=== PATIENT | female | born 1935 | race Caucasian/White ===

== ENCOUNTER 2018-07-04 22:35 | Observation (INO) | payer OTHER ==
[~2018-07-04] VITALS: Ht 177.8 cm; Wt 114.9 kg
[2018-07-04 23:23] LABS: BASOPHILS # (AUTO) 0.03 x10^3/uL (0-0.1); BASOPHILS % (AUTO) 0 % (0-1); EOSINOPHILS # (AUTO) 0.06 x10^3/uL (0-0.4); EOSINOPHILS % (AUTO) 1 % (1-7); LYMPHOCYTES % (AUTO) 25 % (22-44); MD NO; MEAN CORPUSCULAR HEMOGLOBIN 29.9 pg (27.0-34.8); MEAN CORPUSCULAR HGB CONC 33.3 g/dL (32.4-35.8); MEAN CORPUSCULAR VOLUME 89.8 fL (80-100); MEAN PLATELET VOLUME 8.5 fL (7.4-10.4); MONOCYTES % (AUTO) 8 % (2-9); NEUTROPHILS % (AUTO) 66 % (42-75); PLATELET COUNT 212 x10^3/uL (130-400); RED BLOOD COUNT 4.47 x10^6/uL (3.82-5.3); RED CELL DISTRIBUTION WIDTH 14.9 % (9.6-15.2)
[2018-07-04 23:35] LABS: ALANINE AMINOTRANSFERASE 24 U/L (12-78); ALBUMIN 3.6 g/dL (3.4-5.0); ANION GAP 7 mmol/L (5-15); CALCIUM 9.9 mg/dL (8.5-10.1); CHLORIDE 108 mmol/L (98-107); CREATININE 0.88 mg/dL (0.55-1.02)
[2018-07-04 23:39] LABS: ALKALINE PHOSPHATASE 93 U/L (45-117); BILIRUBIN,TOTAL 0.2 mg/dL (0.2-1.0); TOTAL PROTEIN 7.5 g/dL (6.4-8.2); TROPONIN I < 0.015 ng/mL (0.000-0.045)
[2018-07-05] MEDS ORDERED: OMNIPAQUE 350 MG/ML, 100ML BOTTLE ONE (00:43)
[2018-07-05] MEDS ORDERED: ONDANSETRON 2MG/ML, 2ML IVPush PRN ×2 (01:30→08:00)
[2018-07-05 02:13] VITALS: BP 162/85
[2018-07-05 06:38] VITALS: BP 141/72
[2018-07-05] MEDS ORDERED: ENALAPRILAT 1.25 MG/ML, 2ML IVPush PRN (08:00)
[2018-07-05] MEDS ORDERED: GLUCAGON 1 MG IM PRN (08:00)
[2018-07-05] MEDS ORDERED: LABETALOL 5MG/ML, 20ML IVPush PRN (08:00)
[2018-07-05] MEDS ORDERED: DEXTROSE 4 GM TAB.CHEW PO PRN (08:00)
[2018-07-05] MEDS ORDERED: DEXTROSE 50%, 50ML SYRINGE IVPush PRN (08:00)
[2018-07-05] MEDS: INSULIN LISPRO 100 UNITS/ML, PEN SQ-INSULIN SCH ×4 (08:00→20:45)
[2018-07-05] MEDS: SODIUM CHLORIDE FLUSH 10ML SYR IVF SCH ×3 (09:00→20:47)
[2018-07-05 09:04] LABS: TROPONIN I < 0.015 ng/mL (0.000-0.045)
[2018-07-05] MEDS ORDERED: SITA1TBM7 PO (12:34)
[2018-07-05] MEDS ORDERED: GLIP5TAB3 PO (12:34)
[2018-07-05] MEDS ORDERED: ALBU6.7H INH (12:34)
[2018-07-05] MEDS ORDERED: CARV20CP PO (12:34)
[2018-07-05] MEDS ORDERED: OMEP20TA62 PO (12:34)
[2018-07-05] MEDS ORDERED: ICOS1CAP PO (12:34)
[2018-07-05] MEDS ORDERED: OXYB5TAB PO (12:34)
[2018-07-05] MEDS ORDERED: BECL10.62 INH (12:34)
[2018-07-05] MEDS ORDERED: DULO60CA7 PO (12:34)
[2018-07-05] MEDS ORDERED: CAND32TA7 PO (12:34)
[2018-07-05] MEDS ORDERED: HYDR-3342 PO (12:34)
[2018-07-05] MEDS ORDERED: GABA300C10 PO (12:34)
[2018-07-05] MEDS ORDERED: ATOR10TA PO (12:34)
[2018-07-05 12:51] VITALS: BP 140/72
[2018-07-05] MEDS: HEPARIN 5,000 UNITS/ML, 1ML SQ SCH ×2 (12:56→18:21)
[2018-07-05 13:52] LABS: TROPONIN I < 0.015 ng/mL (0.000-0.045)
[2018-07-05] MEDS ORDERED: ALBUTEROL SULFATE 2.5 MG/3 ML HHN PRN (16:00)
[2018-07-05] MEDS: BECLOMETHASONE MC SCH (16:30)
[2018-07-05] MEDS: ICOSAPENT ETHYL MC SCH (16:30)
[2018-07-05] MEDS: CARVEDILOL 6.25 MG TABLET PO SCH (18:20)
[2018-07-05 20:43] VITALS: BP 160/83
[2018-07-05] MEDS: GABAPENTIN 300 MG CAPSULE PO SCH (20:44)
[2018-07-05] MEDS: OMEGA-3/FISH OIL CAPSULE PO SCH (20:44)
[2018-07-05] MEDS ORDERED: ATORVASTATIN 10 MG TABLET PO SCH (21:00)
[2018-07-05] MEDS ORDERED: OMEPRAZOLE 20 MG CAPSULE.DR PO SCH (21:00)
[2018-07-05] MEDS: ACETAMINOPHEN 325 MG TABLET PO PRN (21:40)
[2018-07-06] MEDS: BECLOMETHASONE MC SCH ×2 (01:05→08:30)
[2018-07-06] MEDS: ICOSAPENT ETHYL MC SCH ×2 (01:05→08:30)
[2018-07-06 02:00] VITALS: BP 148/76
[2018-07-06] MEDS: HEPARIN 5,000 UNITS/ML, 1ML SQ SCH ×2 (02:08→10:02)
[2018-07-06 05:10] LABS: BASOPHILS # (AUTO) 0.03 x10^3/uL (0-0.1); BASOPHILS % (AUTO) 1 % (0-1); EOSINOPHILS # (AUTO) 0.04 x10^3/uL (0-0.4); EOSINOPHILS % (AUTO) 1 % (1-7); LYMPHOCYTES # (AUTO) 1.55 x10^3/uL (1-3.4); LYMPHOCYTES % (AUTO) 32 % (22-44); MD NO; MEAN CORPUSCULAR HEMOGLOBIN 30.2 pg (27.0-34.8); MEAN CORPUSCULAR HGB CONC 33.4 g/dL (32.4-35.8); MEAN CORPUSCULAR VOLUME 90.4 fL (80-100); MONOCYTES # (AUTO) 0.45 x10^3/uL (0.2-0.8); MONOCYTES % (AUTO) 9 % (2-9); NEUTROPHILS # (AUTO) 2.82 x10^3/uL (1.8-6.8); NEUTROPHILS % (AUTO) 58 % (42-75); PLATELET COUNT 185 x10^3/uL (130-400); RED BLOOD COUNT 4.33 x10^6/uL (3.82-5.3); RED CELL DISTRIBUTION WIDTH 15.2 % (9.6-15.2)
[2018-07-06 05:23] LABS: CALCIUM 9.8 mg/dL (8.5-10.1); CHLORIDE 108 mmol/L (98-107)
[2018-07-06 05:28] LABS: ANION GAP 7 mmol/L (5-15); CHOL/HDL RATIO 1.8; CHOLESTEROL, TOTAL 112 mg/dL (140-239); CREATININE 0.82 mg/dL (0.55-1.02); HDL CHOL % 55 % (28-40); HDL CHOLESTEROL (DIRECT) 62 mg/dL (40-60); LDL CHOLESTEROL,CALCULATED 39 mg/dL (54-169); LDL/HDL RATIO 0.6 (0.5-3.0); TRIGLYCERIDES 56 mg/dL (50-200); VLDL CHOLESTEROL 11 mg/dL (0-25)
[2018-07-06 06:02] VITALS: BP 143/84
[2018-07-06] MEDS: CARVEDILOL 6.25 MG TABLET PO SCH (06:05)
[2018-07-06] MEDS: INSULIN LISPRO 100 UNITS/ML, PEN SQ-INSULIN SCH ×2 (07:00→11:00)
[2018-07-06] MEDS ORDERED: LOSARTAN 50MG TABLET PO SCH (09:00)
[2018-07-06] MEDS ORDERED: OXYBUTYNIN CHLORIDE 5 MG TABLET PO SCH (09:00)
[2018-07-06] MEDS ORDERED: DULOXETINE 30 MG CAPSULE.DR PO SCH (09:00)
[2018-07-06] MEDS ORDERED: FLUTICASONE FUROATE 100MCG/INH INH SCH (09:00)
[2018-07-06] MEDS: GABAPENTIN 300 MG CAPSULE PO SCH (10:02)
[2018-07-06] MEDS: SODIUM CHLORIDE FLUSH 10ML SYR IVF SCH (10:04)
[2018-07-06] MEDS: OMEGA-3/FISH OIL CAPSULE PO SCH (10:04)
[2018-07-06] MEDS: ACETAMINOPHEN 325 MG TABLET PO PRN (12:05)
[2018-07-06 14:20] VITALS: BP 126/62
== END 2018-07-06 16:10 | disposition home or self-care (01) ==
LOC: ED 07-05 01:13 → 5SO 07-05 01:24 → INTOOBSV 07-05 01:24 → DCLOUNGE 07-06 15:54
PROVIDERS: ADMIT Family Medicine; ATTEND Family Medicine
DX: R07.9 Chest pain, unspecified (principal); J45.909 Unspecified asthma, uncomplicated; E78.00 Pure hypercholesterolemia, unspecified; E11.65 Type 2 diabetes mellitus with hyperglycemia; I10 Essential (primary) hypertension; F32.9 Major depressive disorder, single episode, unspecified; J96.00 Acute respiratory failure, unspecified whether with hypoxia or hypercapnia; M79.7 Fibromyalgia; Z87.891 Personal history of nicotine dependence
CPT/HCPCS: 36415; 71045; 71275; 80048; 80053; 80061; 82962; 83036; 83735; 83880; 84100; 84443; 84484; 85025; 93005; 93306; 96372; 97162; 97166; 99285; G0378; G8978; G8979; G8980; J1644; J1815; Q9967

== ENCOUNTER 2018-07-20 19:57 | Emergency (ER) | payer OTHER ==
[~2018-07-20] VITALS: Ht 177.8 cm; Wt 102.0 kg
[~2018-07-20 19:57] MED LIST: ALBU6.7H INH; ATOR10TA PO; BECL10.62 INH; CAND32TA7 PO; CARV20CP PO; DULO60CA7 PO; GABA300C10 PO; GLIP5TAB3 PO; HYDR-3342 PO; ICOS1CAP PO; OMEP20TA62 PO; OXYB5TAB PO; SITA1TBM7 PO
[2018-07-20 20:43] VITALS: BP 134/68
== END 2018-07-20 20:45 | disposition home or self-care (01) ==
LOC: ED 20:39
DX: E11.65 Type 2 diabetes mellitus with hyperglycemia (principal); I10 Essential (primary) hypertension; J45.909 Unspecified asthma, uncomplicated; Z88.2 Allergy status to sulfonamides; Z88.1 Allergy status to other antibiotic agents
CPT/HCPCS: 82962; 99282

== ENCOUNTER 2018-10-04 10:10 | Emergency (ER) | payer OTHER ==
[~2018-10-04] VITALS: Ht 177.8 cm; Wt 96.5 kg
[2018-10-04 10:12] VITALS: BP 129/82
[2018-10-04] MEDS ORDERED: HYDROmorphone 2 MG/ML, 1ML ONE (10:46)
[2018-10-04] MEDS ORDERED: HYDROmorphone 2 MG/ML, 1ML IM ONE (11:00)
== END 2018-10-04 12:46 | disposition home or self-care (01) ==
LOC: ED 10:35
DX: S09.8XXA Other specified injuries of head, initial encounter (principal); G89.11 Acute pain due to trauma; M54.6 Pain in thoracic spine; M54.5 Low back pain; I10 Essential (primary) hypertension; E11.9 Type 2 diabetes mellitus without complications; F32.9 Major depressive disorder, single episode, unspecified; J45.909 Unspecified asthma, uncomplicated; Z90.49 Acquired absence of other specified parts of digestive tract; W01.0XXA Fall on same level from slipping, tripping and stumbling without subsequent striking against object, initial encounter; Y93.89 Activity, other specified; Y99.8 Other external cause status; Y92.009 Unspecified place in unspecified non-institutional (private) residence as the place of occurrence of the external cause
CPT/HCPCS: 70450; 72072; 72110; 93005; 96372; 99284; J1170

== ENCOUNTER 2019-01-12 09:42 | Emergency (ER) | payer OTHER ==
[~2019-01-12] VITALS: Ht 177.8 cm; Wt 93.6 kg
--- NOTE | 2019-01-12 12:05 | NUR ---
PT TO ROOM FROM LOBBY AT THIS TIME.
[2019-01-12 13:16] VITALS: BP 135/82
--- NOTE | 2019-01-12 13:26 | NUR ---
Patient/Caregiver given discharge instructions and they have confirmed that they understand the instructions. Patient ambulatory with steady gait.
== END 2019-01-12 13:27 | disposition home or self-care (01) ==
LOC: ED 12:53
DX: S20.212A Contusion of left front wall of thorax, initial encounter (principal); I10 Essential (primary) hypertension; M25.562 Pain in left knee; W18.39XA Other fall on same level, initial encounter; Y93.89 Activity, other specified; Y92.89 Other specified places as the place of occurrence of the external cause; Y99.8 Other external cause status
CPT/HCPCS: 99283

== ENCOUNTER → 2019-01-18 | Outpatient (CLI) | payer OTHER | END | disposition home or self-care (01) | LOC: CFH 13:08 | PROVIDERS: ATTEND Internal Medicine | DX: M48.54XA Collapsed vertebra, not elsewhere classified, thoracic region, initial encounter for fracture (principal); R09.02 Hypoxemia; R06.02 Shortness of breath | CPT/HCPCS: 71046 ==

== ENCOUNTER 2019-04-06 13:00 | Outpatient (CLI) | payer MEDICARE ==
[2019-04-06] MEDS ORDERED: OMNIPAQUE 350 MG/ML, 100ML BOTTLE ONE (15:52)
== END 2019-04-06 23:59 | disposition home or self-care (01) ==
LOC: CFH 13:00
PROVIDERS: ATTEND Psychiatry & Neurology Neurology
DX: I72.8 Aneurysm of other specified arteries (principal); R51 Headache; R55 Syncope and collapse; Z86.79 Personal history of other diseases of the circulatory system
CPT/HCPCS: 70496; Q9967

== ENCOUNTER 2020-05-01 13:18 | Outpatient (CLI) | payer MEDICARE ==
[~2020-05-01 13:18] MED LIST changes: -ALBU6.7H INH; +ALBU6.7H8 INH; +OXYB-39 PO; -OXYB5TAB PO
== END 2020-05-01 23:59 | disposition home or self-care (01) ==
LOC: RAD 13:18
PROVIDERS: ATTEND Family Medicine
DX: R60.0 Localized edema (principal)

== ENCOUNTER 2020-06-05 13:33 | Emergency (ER) | payer MEDICARE ==
[~2020-06-05] VITALS: Ht 170.2 cm; Wt 90.9 kg
[2020-06-05] MEDS ORDERED: SODIUM CHLORIDE FLUSH 10ML SYR IVF ONE (14:00)
--- NOTE | 2020-06-05 14:25 | NUR ---
C-COLLAR APPLIED BY MANAGER RESEARCH AND GAUZE APPLIED TO POSTERIOR HEAD WOUND. DAUGHTER AT BS.
[2020-06-05 14:40] LABS: BASOPHILS # (AUTO) 0.02 x10^3/uL (0-0.1); BASOPHILS % (AUTO) 0 % (0-1); EOSINOPHILS # (AUTO) 0.11 x10^3/uL (0-0.4); EOSINOPHILS % (AUTO) 2 % (1-7); LYMPHOCYTES # (AUTO) 1.17 x10^3/uL (1-3.4); LYMPHOCYTES % (AUTO) 24 % (22-44); MD NO; MEAN CORPUSCULAR HEMOGLOBIN 30.8 pg (27.0-34.8); MEAN CORPUSCULAR HGB CONC 32.3 g/dL (32.4-35.8); MEAN CORPUSCULAR VOLUME 95.5 fL (80-100); MEAN PLATELET VOLUME 8.9 fL (7.4-10.4); MONOCYTES % (AUTO) 8 % (2-9); NEUTROPHILS # (AUTO) 3.22 x10^3/uL (1.8-6.8); NEUTROPHILS % (AUTO) 66 % (42-75); PLATELET COUNT 160 x10^3/uL (130-400); RED BLOOD COUNT 4.49 x10^6/uL (3.82-5.3); RED CELL DISTRIBUTION WIDTH 13.9 % (9.6-15.2)
[2020-06-05 14:44] LABS: ALBUMIN 3.6 g/dL (3.4-5.0); ANION GAP 3 mmol/L (5-15); CALCIUM 9.6 mg/dL (8.5-10.1); CHLORIDE 107 mmol/L (98-107); CREATININE 0.85 mg/dL (0.55-1.02)
[2020-06-05 14:48] LABS: TROPONIN I < 0.015 ng/mL (0.000-0.045)
--- NOTE | 2020-06-05 15:25 | NUR ---
ASSISTED PT TO BR VIA WC. PT VOIDED WITHOUT DIFFICULTY. NEW BRIEF PROVIDED, LINEN CHANGE DONE.
--- NOTE | 2020-06-05 15:28 | NUR ---
ER PA IN FOR RECHECK, REMOVING C-COLLAR NOW.
--- NOTE | 2020-06-05 15:29 | NUR ---
PT TO XR VIA MANDI.
--- NOTE | 2020-06-05 16:00 | NUR ---
REPORT RECEIVED FROM ASIA DE LA CRUZ.
[2020-06-05] MEDS ORDERED: NEOSPORIN OINT. PKT 1 PACKET ONE (16:22)
[2020-06-05 16:32] VITALS: BP 180/92
--- NOTE | 2020-06-05 17:11 | NUR ---
Patient's daughter given discharge instructions and they have confirmed that they understand the instructions.
== END 2020-06-05 17:12 | disposition home or self-care (01) ==
LOC: ED 13:56
DX: S22.9XXA Fracture of bony thorax, part unspecified, initial encounter for closed fracture (principal); S16.1XXA Strain of muscle, fascia and tendon at neck level, initial encounter; S29.012A Strain of muscle and tendon of back wall of thorax, initial encounter; S00.03XA Contusion of scalp, initial encounter; I21.9 Acute myocardial infarction, unspecified; I10 Essential (primary) hypertension; E11.9 Type 2 diabetes mellitus without complications; Z90.89 Acquired absence of other organs; Z90.49 Acquired absence of other specified parts of digestive tract; W01.0XXA Fall on same level from slipping, tripping and stumbling without subsequent striking against object, initial encounter; Y93.89 Activity, other specified; Y92.098 Other place in other non-institutional residence as the place of occurrence of the external cause; Y99.8 Other external cause status
CPT/HCPCS: 36415; 70450; 71045; 72072; 72125; 80048; 82040; 84484; 85025; 93005; 99285